=== PATIENT | male | born 1975 | race Hispanic/Latino ===

== ENCOUNTER 2018-05-25 00:20 | Inpatient (IN) | payer OTHER ==
[~2018-05-25] VITALS: Ht 167.6 cm; Wt 105.7 kg
[~2018-05-25 00:20] MED LIST: LISI1TAB9 PO
[2018-05-25 00:59] LABS: BASOPHILS % (AUTO) 0.6 % (0.0-5.0); EOSINOPHILS % (AUTO) 5.8 % (0.0-8.0); LYMPHOCYTES % (AUTO) 17.1 % (21.0-51.0); MEAN CORPUSCULAR HEMOGLOBIN 28.5 pg (27.0-33.0); MEAN CORPUSCULAR HGB CONC 33.3 g/dL (32.0-36.0); MEAN CORPUSCULAR VOLUME 85.6 fL (79-99); MONOCYTES % (AUTO) 9.4 % (3.0-13.0); NEUTROPHILS % (AUTO) 67.1 % (40.0-77.0); NUCLEATED RED BLOOD CELLS 0.1 % (0.0-0.19); PLATELET COUNT (AUTO) 278 K/uL (130-400); RED BLOOD CELL COUNT(AUTO) 5.72 MIL/uL (4.50-6.20); RED CELL DISTRIBUTION WIDTH 13.6 % (11.0-15.5); WHITE BLOOD COUNT (AUTO) 12.6 K/uL (4.8-10.8)
[2018-05-25 01:05] LABS: APPEARANCE,URINE Clear (CLEAR); BILIRUBIN,URINE Negative (NEGATIVE); COLOR,URINE Yellow (YELLOW); GLUCOSE, URINE (UA) Negative (NEGATIVE); KETONES,URINE Negative (NEGATIVE); LEUKOCYTE ESTERASE ,URINE Negative (NEGATIVE); NITRATE,URINE Negative (NEGATIVE); OCCULT BLOOD,URINE Moderate (NEGATIVE); PH,URINE 5.5 (5.0-8.0); PROTEIN,URINE Negative (NEGATIVE)
[2018-05-25 01:10] LABS: BACTERIA,URINE None Seen /HPF (None Seen); MUCUS,URINE Rare LPF (None Seen); RBC,URINE 0-1 /HPF (0-1); SQUAMOUS EPITHELIAL CELL,UR Rare /HPF (0-2); WBC,URINE None Seen /HPF (0-1)
[2018-05-25 01:17] LABS: CREATININE 0.9 mg/dL (0.5-1.5); POTASSIUM 3.6 mmol/L (3.5-5.1)
[2018-05-25 01:21] LABS: ALBUMIN 3.8 g/dL (3.5-5.0); BILIRUBIN,TOTAL 0.8 mg/dL (0.2-1.0); TOTAL PROTEIN, SERUM 8.2 g/dL (6.0-8.3)
[2018-05-25] MEDS ORDERED: SODIUM CHLORIDE 0.9% 1000ML 1,000 ML IV ONE ×2 (02:10→08:06)
[2018-05-25] MEDS ORDERED: ONDANSETRON HCL 4 MG/2 ML VIAL ONE (02:10)
[2018-05-25] MEDS ORDERED: IOHEXOL-350 75 ML VIAL IV ONE (02:42)
[2018-05-25] MEDS: SODIUM CHLORIDE 0.9% 1000ML 1,000 ML IV SCH ×4 (04:17→23:34)
[2018-05-25] MEDS ORDERED: MORPHINE SULFATE 4 MG/1ML SYG IV PRN (04:30)
[2018-05-25] MEDS ORDERED: ACETAMINOPHEN 325 MG TAB PO PRN (04:30)
[2018-05-25] MEDS ORDERED: ONDANSETRON HCL 4 MG/2 ML VIAL IV PRN (04:30)
[2018-05-25] MEDS ORDERED: CLONIDINE HCL 0.1 MG TABLET ONE (05:16)
[2018-05-25] MEDS ORDERED: ENOXAPARIN SODIUM 40 MG/0.4 ML SYRINGE SQ ONE (08:06)
[2018-05-25] MEDS ORDERED: FAMOTIDINE/PF 20 MG/2 ML VIAL IV ONE ×2 (08:06→20:58)
[2018-05-25] MEDS: FAMOTIDINE/PF 20 MG/2 ML VIAL IV SCH ×2 (08:15→21:00)
[2018-05-25] MEDS ORDERED: ENOXAPARIN SODIUM 40 MG/0.4 ML SYRINGE SQ SCH (09:00)
[2018-05-25] MEDS: LISINOPRIL HCTZ PO SCH (09:00)
[2018-05-25 21:40] VITALS: BP 177/90
[2018-05-25] MEDS ORDERED: HYDRALAZINE HCL 20 MG/ML VIAL IV PRN (22:30)
[2018-05-25 23:50] VITALS: BP 160/100
[2018-05-26] MEDS: HYDRALAZINE HCL 20 MG/ML VIAL IV PRN ×3 (00:46→22:52)
[2018-05-26] MEDS: SODIUM CHLORIDE 0.9% 1000ML 1,000 ML IV SCH ×3 (04:16→20:20)
[2018-05-26 04:40] VITALS: BP 139/85
[2018-05-26 07:38] VITALS: BP 134/84
[2018-05-26] MEDS: LISINOPRIL HCTZ PO SCH (08:31)
[2018-05-26] MEDS: FAMOTIDINE/PF 20 MG/2 ML VIAL IV SCH ×2 (08:31→19:28)
[2018-05-26] MEDS: KETOROLAC TROMETHAMINE 30MG/ML IV PRN ×2 (09:56→16:59)
[2018-05-26 11:22] VITALS: BP 162/87
--- NOTE | 2018-05-26 16:00 | NUR ---
MELLISSA MARTIN, ENG SPEAKING, EMPLOYED INDEPENDENT, STATES USED TO BE PT OF [employer]RYST[facility] SANDOVAL, ENCORAGED TO RE REGISTER, WILL BRING PKT Addendum: 05/26/18 at 1756 by KEVIN ZURITA RN CM Amended: Links added.
[2018-05-26 16:29] VITALS: BP 172/107
[2018-05-26] MEDS: DOCUSATE SODIUM 100 MG CAP PO SCH (17:01)
[2018-05-26 19:36] VITALS: BP 159/87
[2018-05-26 23:35] VITALS: BP 182/117
[2018-05-27] MEDS: SODIUM CHLORIDE 0.9% 1000ML 1,000 ML IV SCH (02:29)
[2018-05-27 04:00] VITALS: BP 153/93
[2018-05-27 04:34] LABS: HEMATOCRIT 42.9 % (42-54); MEAN CORPUSCULAR HEMOGLOBIN 29.1 pg (27.0-33.0); MEAN CORPUSCULAR HGB CONC 33.9 g/dL (32.0-36.0); NUCLEATED RED BLOOD CELLS 0.1 % (0.0-0.19); PLATELET COUNT (AUTO) 298 K/uL (130-400); RED BLOOD CELL COUNT(AUTO) 4.98 MIL/uL (4.50-6.20); RED CELL DISTRIBUTION WIDTH 13.3 % (11.0-15.5); WHITE BLOOD COUNT (AUTO) 8.5 K/uL (4.8-10.8)
[2018-05-27 04:52] LABS: CREATININE 0.8 mg/dL (0.5-1.5); POTASSIUM 3.5 mmol/L (3.5-5.1)
[2018-05-27 07:28] VITALS: BP 137/84
[2018-05-27] MEDS: FAMOTIDINE/PF 20 MG/2 ML VIAL IV SCH (08:06)
[2018-05-27] MEDS: DOCUSATE SODIUM 100 MG CAP PO SCH (08:06)
[2018-05-27] MEDS: LISINOPRIL HCTZ PO SCH (08:09)
[2018-05-27 11:08] VITALS: BP 136/89
--- NOTE | 2018-05-27 12:19 | NUR ---
HOSPITALIST DR. IRIZARRY IN TO SEE PATIENT. NEW ORDERS RECEIVED.
[2018-05-27] MEDS ORDERED: LUBIPROSTONE 24 MCG CAP PO SCH (12:30)
--- NOTE | 2018-05-27 15:00 | NUR ---
ROUNDS PATIENT HAS TOLERATED DIET WELL TO THIS POINT. HE HAS BEEN AMBULATING IN HALLWAY THROUGHOUT THE MORNING AND THIS AFTERNOON. HE IS PASSING GAS AND HAS HAD A BOWEL MOVEMENT THIS MORNING. POSSIBLE DISCHARGE THIS AFTERNOON PER DR. IRIZARRY.
[2018-05-27 16:43] VITALS: BP 175/112
[2018-05-27] MEDS: HYDRALAZINE HCL 20 MG/ML VIAL IV PRN (16:44)
[2018-05-27 17:58] VITALS: BP 156/88
[2018-05-27] MEDS ORDERED: LISI1TAB9 PO (18:21)
[2018-05-27] MEDS ORDERED: BISA5TAB12 PO (18:21)
--- NOTE | 2018-05-27 18:40 | NUR ---
INSTRUCTIONS DISCHARGE INSTRUCTIONS GIVEN TO PATIENT USING TEACH BACK. NEW PRESCRIPTIONS PLACED IN PACKET ALONG WITH ALL PRINTED INSTRUCTIONS. IV WAS REMOVED WITH TIP INTACT. DIRECT PRESSURE WAS APPLIED UNTIL BLEEDING CONTROLLED THEN SITE COVERED WITH GAUZE AND SECURED WITH A BAND-AID. NO QUESTIONS OR CONCERNS VOICED AT THIS TIME. PENDING RIDE HOME.
== END 2018-05-27 18:56 | disposition home or self-care (01) | DRG 390 ==
LOC: EDH 00:20 → OBSVTOIN 00:21 → EDHIP 00:21 → 4AH 21:40
PROVIDERS: ADMIT Internal Medicine; ATTEND Internal Medicine
DX: K56.609 Unspecified intestinal obstruction, unspecified as to partial versus complete obstruction (principal); I10 Essential (primary) hypertension; K76.0 Fatty (change of) liver, not elsewhere classified; Z91.19 Patient's noncompliance with other medical treatment and regimen; Z83.3 Family history of diabetes mellitus; Z82.49 Family history of ischemic heart disease and other diseases of the circulatory system; Z82.3 Family history of stroke; Z79.899 Other long term (current) drug therapy; Z88.8 Allergy status to other drugs, medicaments and biological substances
CPT/HCPCS: 36415; 74018; 74177; 76705; 80048; 80053; 81001; 83690; 85025; 85027; G0378; J0360; J1650; J1885; J2405; J3490; J7030; Q9967